=== PATIENT | male | born 1975 | race African-American/Black ===

== ENCOUNTER 2019-03-01 11:05 | Emergency (ER) | payer SELFPAY ==
[~2019-03-01] VITALS: Ht 172.7 cm; Wt 84.0 kg
[2019-03-01] MEDS ORDERED: KETOROLAC 30MG/ML VIAL IV ONE (14:30)
[2019-03-01] MEDS ORDERED: ACETAMINOPHEN 325MG TABLET PO ONE (15:45)
[2019-03-01 15:51] VITALS: BP 128/82
== END 2019-03-01 16:01 | disposition home or self-care (01) ==
LOC: ER 13:14
DX: K02.9 Dental caries, unspecified (principal); F12.90 Cannabis use, unspecified, uncomplicated; Z72.0 Tobacco use
CPT/HCPCS: 70450; 70486; 70490; 96374; 99284; J1885

== ENCOUNTER 2019-04-21 08:51 | Emergency (ER) | payer SELFPAY ==
[~2019-04-21] VITALS: Ht 175.3 cm; Wt 79.5 kg
[2019-04-21] MEDS ORDERED: KETOROLAC 60MG/2ML VIAL IM ONE (10:00)
[2019-04-21 10:41] VITALS: BP 133/70
== END 2019-04-21 10:42 | disposition home or self-care (01) ==
LOC: ER 08:53
DX: M25.512 Pain in left shoulder (principal); M25.571 Pain in right ankle and joints of right foot; M54.5 Low back pain; F17.210 Nicotine dependence, cigarettes, uncomplicated; W01.0XXA Fall on same level from slipping, tripping and stumbling without subsequent striking against object, initial encounter; Y93.89 Activity, other specified; Y92.89 Other specified places as the place of occurrence of the external cause
CPT/HCPCS: 96372; 99283; J1885